=== PATIENT | male | born 1940 | race Caucasian/White ===

== ENCOUNTER 2017-09-30 07:16 | Day surgery (SDC) | payer MEDICARE, OTHER ==
[~2017-09-30] VITALS: Ht 170.2 cm; Wt 96.2 kg
[~2017-09-30 07:16] MED LIST: ASPIR-LOW81 MG PO; COREG6.25 MG PO; DIOVAN320 MG PO; FENOFIBRATE48 MG PO; K-TAB ER20 MEQ PO; NORVASC10 MG PO; SENNA8.6 MG PO; VITAMIN D32000 UNIT
--- NOTE | 2017-09-30 09:12 | NUR ---
09/30/17 0912 [facility] ARRIVED IN PACU SLEEPY WITH NO C/O'S. ABD SOFT.
--- NOTE | 2017-10-01 08:29 | OR ---
[facility] [address], [place] [address] Signed DATE OF OPERATION: 09/30/2017 SURGEON: Gina Baer MD PREOPERATIVE DIAGNOSIS: History of colonic polyps and diverticulosis. POSTOPERATIVE DIAGNOSES: 1. Sigmoid diverticulosis. 2. Polyps x8. PROCEDURE: Total colonoscopy to cecum with cold morcellation polypectomy x4, snare polypectomy x4 and Endomark submucosal injection (tattoo) x1. ANESTHESIA: Intravenous sedation, fentanyl 150 mcg, Versed 8 mg. INDICATION: This 77-year-old white man is patient of Dr. Nemesio Cool of [place] and has history of colonoscopy in [place], [place] a number of years ago, which showed polyps as well as diverticulosis. He does have chronic constipation for which he was treated with Senokot. If he takes his medication, he has no constipation particularly. He has had no blood per rectum or other issues related to colon recently. He is admitted at this time to undergo colonoscopy understanding the risks of bleeding, infection, and perforation. FINDINGS: The prep was excellent. Complete colonoscopy was undertaken to the cecum. He was noted to have numerous polyps, all of them small. The largest in the right colon, which was probably 2 cm in size, sessile and was excised with mucosal lift technique using Endomark tattoo dye as well. Remaining polyps were excised with a variety of methods. Diverticula of the sigmoid were noted as well. DESCRIPTION OF PROCEDURE: The patient was brought to the endoscopy suite and placed in lateral decubitus position, given intravenous sedation to the point of slurred speech and nystagmus. Digital rectal examination was normal. Full cardiopulmonary monitoring was maintained. An Olympus video colonoscope was passed in the rectum after normal digital rectal Electronically Signed By: GINA BAER MD 10/01/17 0829 PATIENT NAME: JEAN CUBA OPERATIVE REPORT DATE OF : 36 PHYSICIAN: GINA BAER MD REPORT #: [id number] REPORT IS CONFIDENTIAL AND NOT TO BE RELEASED WITHOUT AUTHORIZATION [facility] [address], [place] [address] Signed examination was undertaken. The scope was manipulated throughout the colon ultimately intubating the right colon, where a somewhat linear sessile polyp was noted. Narrow-band imaging confirmed this most likely to be an adenoma. Although the scope would not pass all the way to the cecum given its location and propitious positioning for excision. Excision was deemed warranted at that point. Using an Endomark tattoo dye and a sclerotherapy needle, mucosal lift was undertaken of the polyp and using hot snare polypectomy technique, the polyp was excised completely. It was grasped and withdrawn through the channel of the scope and delivered for pathology. There was no sign of bleeding or other problem. The scope was then advanced more fully to the cecum. The cecum had a very tiny polyp, which was excised with cold morcellation technique. The scope was withdrawn and careful inspection undertaken. At the hepatic flexure, there was another small polyp. This was excised with cold morcellation technique. Further withdrawal of the scope showed another polyp in the distal transverse, which was excised with snare technique without cautery. Further withdrawal of the scope showed 2 small polyps at the splenic flexure on the left colon side, both excised with cold morcellation technique. Further withdrawal showed diverticulosis of the sigmoid. Another small polyp was noted in the sigmoid, which was excised with snare technique and a third in the rectosigmoid similarly excised. In all 8 polyps total were resected to sent together in the region of the left colon. Retroflexed view of the rectum had been normal. The scope was removed and the patient was taken to recovery room in good condition. CONCLUDING DIAGNOSIS: Multiple polyps and diverticulosis. PLAN: Recommend repeat colonoscopy in 1 to 2 years, sooner if symptoms should develop. He will return to the ongoing care of Dr. Cool in the meantime. MD DALTON Randall/MODL /[id number] Electronically Signed By: GINA BAER MD 10/01/17 0829 PATIENT NAME: JEAN CUBA OPERATIVE REPORT DATE OF : 36 PHYSICIAN: GINA BAER MD REPORT #: [id number] REPORT IS CONFIDENTIAL AND NOT TO BE RELEASED WITHOUT AUTHORIZATION [address] [address] Signed cc: Nemesio Cool MD Electronically Signed By: GINA BAER MD 10/01/17 0829 PATIENT NAME: JEAN CUBA OPERATIVE REPORT DATE OF : 36 PHYSICIAN: GINA BAER MD REPORT #: [id number] REPORT IS CONFIDENTIAL AND NOT TO BE RELEASED WITHOUT AUTHORIZATION
== END 2017-09-30 09:45 | disposition home or self-care (01) ==
LOC: DS 07:16 → OPS 07:16 → DS 08:30 → OPS 08:30
PROVIDERS: Surgery
PROC: 0DBF8ZX Excision of Right Large Intestine, Via Natural or Artificial Opening Endoscopic, Diagnostic (ICD-10-PCS; 2017-09-30)
PROC: 0DBG8ZX Excision of Left Large Intestine, Via Natural or Artificial Opening Endoscopic, Diagnostic (ICD-10-PCS; 2017-09-30)
PROC: 0DBL8ZX Excision of Transverse Colon, Via Natural or Artificial Opening Endoscopic, Diagnostic (ICD-10-PCS; 2017-09-30)
PROC: 0DBN8ZX Excision of Sigmoid Colon, Via Natural or Artificial Opening Endoscopic, Diagnostic (ICD-10-PCS; 2017-09-30)
PROC: 3E0H8GC Introduction of Other Therapeutic Substance into Lower GI, Via Natural or Artificial Opening Endoscopic (ICD-10-PCS; 2017-09-30)
PROC: 0DBH8ZX Excision of Cecum, Via Natural or Artificial Opening Endoscopic, Diagnostic (ICD-10-PCS; principal; 2017-09-30 08:30)
DX: Z12.11 Encounter for screening for malignant neoplasm of colon (principal); D12.0 Benign neoplasm of cecum; D12.3 Benign neoplasm of transverse colon; D12.2 Benign neoplasm of ascending colon; K63.5 Polyp of colon; K57.30 Diverticulosis of large intestine without perforation or abscess without bleeding; I10 Essential (primary) hypertension; F17.210 Nicotine dependence, cigarettes, uncomplicated; Z88.1 Allergy status to other antibiotic agents; Z79.899 Other long term (current) drug therapy; Z90.89 Acquired absence of other organs; Z98.890 Other specified postprocedural states; Z86.010 Personal history of colon polyps
CPT/HCPCS: 88305; 99153; G0500; J2250; J3010; J7120